=== PATIENT | male | born 1990 | race Caucasian/White ===

== ENCOUNTER 2024-04-05 12:58 | Emergency (ER) | payer BC, SELFPAY ==
[2024-04-05] MEDS ORDERED: Ibuprofen 200 MG TAB ONE (13:53)
[2024-04-05] MEDS ORDERED: Bacitracin 1 PK ONE (13:53)
== END 2024-04-05 14:00 | disposition home or self-care (01) ==
LOC: NAV ERS 12:58
DX: S50.11XA Contusion of right forearm, initial encounter (principal); W45.0XXA Nail entering through skin, initial encounter; Y93.H3 Activity, building and construction; Y92.009 Unspecified place in unspecified non-institutional (private) residence as the place of occurrence of the external cause

== ENCOUNTER 2024-07-29 18:20 | Emergency (ER) | payer BC, OTHER ==
[2024-07-29] MEDS ORDERED: Fluorescein Opthalmic Strip ONE (18:54)
[2024-07-29] MEDS ORDERED: Tetracaine 0.5% PF 4 ML BOT ONE (18:54)
[2024-07-29] MEDS ORDERED: Gentamicin Ophth Soln 0.3% 5 ml Bottle ONE (19:18)
== END 2024-07-29 19:24 | disposition home or self-care (01) ==
LOC: NAV ERS 18:20
DX: T15.02XA Foreign body in cornea, left eye, initial encounter (principal)
CPT/HCPCS: 99283